=== PATIENT | female | born 1935 | race Caucasian/White ===

== ENCOUNTER 2018-07-27 22:40 | Emergency (ER) | payer MEDICARE, MEDICAID ==
[2018-07-27 23:43] LABS: % BASOPHILS 0.7 % (0.0-2.0); % EOSINOPHILS 1.4 % (0.0-5.0); % LYMPHOCYTES 30.5 % (20.0-50.0); % MONOCYTES 10.7 % (2.0-10.0); % NEUTROPHILS 56.7 % (40.0-80.0); BASOPHILE ABSOLUTE 0.1 Th/cumm (0-0.2); EOSINOPHILE ABSOLUTE 0.2 Th/cmm (0.1-0.4); HEMATOCRIT 43.2 % (41.0-60); HEMOGLOBIN 14.3 gm/dL (12-16); LYMPHOCYTE ABSOLUTE 3.3 Th/cmm (1.5-3.0); MEAN CELL VOLUME 89.5 fl (81-100); MEAN CORPUSCULAR HEMOGLOBIN 29.5 pg (27.0-31.0); MEAN PLATELET VOLUME 8.1 fl; MONOCYTE ABSOLUTE 1.2 Th/cmm (0.3-1.0); NEUTROPHILE ABSOLUTE 6.1 Th/cmm (1.8-8.0); PLATELET COUNT 350 Th/cmm (150-400); RED BLOOD COUNT 4.83 Mil/cmm (3.80-5.20); RED CELL DISTRIBUTION WIDTH 12.5 % (11.5-20.0); WHITE BLOOD COUNT 10.9 Th/cmm (4.8-10.8)
[2018-07-28 00:05] LABS: ACETAMINOPHEN < 10.0 ug/mL (10.0-30.0); ALB/GLOB RATIO 1.6 (1.0-1.8); ALBUMIN 4.4 gm/dL (3.7-5.3); ALKALINE PHOSPHATASE 97 U/L (34-104); ANION GAP 14.6 (7.0-16.0); BILIRUBIN,TOTAL 0.3 mg/dL (0.3-1.0); BUN - UREA NITROGEN 21 mg/dL (7-25); CALCIUM SERUM 10.3 mg/dL (8.6-10.3); CARBON DIOXIDE 23.4 mEq/L (21.0-31.0); CHLORIDE 106 mEq/L (98-107); CHOLESTEROL 163 mg/dL (<200); CREATININE - SERUM 0.9 mg/dL (0.6-1.2); GLUCOSE 134 mg/dL (70-105); HDL -HIGH DENSITY LIPOPROTEIN 63 mg/dL (23-92); SGOT 14 U/L (13-39); SGPT/ALT 10 U/L (7-52); SODIUM SERUM 140 mEq/L (136-145); TOTAL PROTEIN,SERUM 7.1 gm/dL (6.0-8.3); TRIGLYCERIDES 154 mg/dL (<150)
[2018-07-28 00:09] LABS: SALICYLATES (ASPIRIN) < 25.0 mg/L (30.0-100.0)
--- NOTE | 2018-07-28 12:41 | ER Physician Documentation ---
DATE OF SERVICE: 07/27/2018 HISTORY OF PRESENT ILLNESS: This patient was brought in by [facility] ambulance to the [facility] for medical clearance due to psychiatric agitation and behavioral problems. This patient apparently has a past medical history of psychiatric disorder, was reported to be having agitation and aggressive behavior for the past 2-3 days. No report of trauma, headaches, neck pain, chest pain, shortness of breath, abdominal pain, nausea, vomiting or diarrhea, paresthesias, weakness or dizziness. PAST MEDICAL HISTORY: Per nurse's notes. MEDICATIONS: Per nurse's notes. ALLERGIES: Per nurse's notes. REVIEW OF SYSTEMS: Otherwise noncontributory. No suicidal ideations reported. PHYSICAL EXAMINATION: GENERAL: The patient in no acute distress, alert and oriented x 3. VITAL SIGNS: Afebrile. Vital signs stable. HEENT: Negative. NECK: Supple. No meningeal signs or cervical tenderness. CARDIOVASCULAR: Regular rate and rhythm. LUNGS: Clear. ABDOMEN: Soft, nontender, normoactive bowel sounds. No pulsatile mass. EXTREMITIES: No edema, clubbing or cyanosis. NEUROLOGIC: No focal signs. MENTAL STATUS EXAM: Revealed the patient was anxious at times. Positive psychomotor agitation. No suicidal ideations. Mood and affect are labile. The patient was medically cleared with EKG and lab tests done, which were unremarkable. Thus, the patient was medically cleared for admission to psychiatric unit. DIAGNOSES: Agitation, psychosis and bipolar disorder. [facility]# [id number]
== END 2018-07-28 01:00 ==
LOC: ER 22:40
DX: F31.9 Bipolar disorder, unspecified (principal); F29 Unspecified psychosis not due to a substance or known physiological condition; R45.1 Restlessness and agitation; R94.31 Abnormal electrocardiogram [ECG] [EKG]
CPT/HCPCS: 36415-UA; 80053-TC; 80061-TC; 80320-TC; 80329-TC; 84443-TC; 84484-TC; 85025-TC; 86592-TC; 93005; Z7502